=== PATIENT | female | born 1980 | race Caucasian/White ===

== ENCOUNTER 2016-09-17 10:25 | Emergency (ER) | payer OTHER ==
[~2016-09-17] VITALS: Ht 157.5 cm; Wt 52.3 kg
[~2016-09-17 10:25] MED LIST: POLY119S PO; TAB-TAB PO
[2016-09-17 10:29] VITALS: BP 118/85; PULSE 144; RESP 24; TEMP 97.5; O2SAT 100
[2016-09-17 10:41] VITALS: BP 124/88; PULSE 134; RESP 18; O2SAT 100
[2016-09-17] MEDS ORDERED: HYDR-3516 PO (10:45)
[2016-09-17] MEDS ORDERED: SODIUM CHLOR 0.9% 1000 ML INJ 1,000 ML IV ONE (10:45)
[2016-09-17] MEDS ORDERED: IBUP200C PO (10:45)
[2016-09-17] MEDS ORDERED: SODIUM CHLORIDE 0.9% FLUSH 10 ML FLUSH IVF PRN (10:45)
[2016-09-17] MEDS ORDERED: MULT-65 PO (10:45)
[2016-09-17 10:47] VITALS: BP 124/88; PULSE 121; RESP 18; O2SAT 100
--- NOTE | 2016-09-17 10:52 | PD ---
HPI Chief Complaint: Numbness/Tingling Time Seen by Provider: 10:35 Travel History International Travel<30 days: No Contact w/Intl Traveler<30days: No Traveled to known affect area: No History of Present Illness HPI The patient is a 35-year-old female who presents emergency department for multiple complaints. The patient was being evaluated at her neurologist office earlier today, Dr. Cardenas, for some left-sided numbness and tingling of the left arm and left leg which she attributed to chronic back problems. However, she was noted to have an elevated heart rate was sent to the emergency department for further evaluation. The patient has a baseline of tachycardia per her report with a normal heart rate that ranges from 90-100. The patient does drink caffeine, multiple cups of coffee per day and take Sudafed daily for her allergies. She also notes a history of hypothyroidism, however, was taken off his Synthroid secondary to low cortisol levels by her [employer] technical architect, Dr. Staton. The patient does complain of palpitations and tachycardia, denies any acute chest pain, however, had indigestion 2 days ago. She does complain of mild shortness of breath. Last menstrual cycle was September 09, she does not take control, but recently traveled to [place] via private vehicle within the last 3 months. She denies any recent hospitalizations, surgeries, or history of pulmonary embolism/DVT. PFSH Past Medical History Anxiety: Yes Cerebrovascular Accident: Yes (TIA AGE 15 FROM ) Diminished Hearing: No GERD: Yes Genitourinary: Yes (HX OF VAGINITIS) Neurologic: Yes (FIBROMYALGIA) Immunizations Current: Yes ?: Not : 2 Para: 0 Miscarriage: 1 : 1 Past Surgical History Section: Yes Gynecologic Surgery: Yes (BREAST AUGMENTATION) Neurologic Surgery: Yes (FIBROMYALGIA) Other Surgery: Yes (BREAST AUGMENTATION,iud) Social History Alcohol Use: No Tobacco Use: No Substance Use: No Allergies-Medications (Allergen,Severity, Reaction): Coded Allergies: Contrast Media (Verified Allergy, Severe, ITCHING ALL OVER AND 2 HIVES, ) PT INSTRUCTED TO ALWAYS LIST AN ALLERGY Levaquin (Verified Allergy, Mild, BODY CRAMP, 09/17/16) Naprosyn (Verified Allergy, Mild, 09/17/16) Pen-Vee K (Verified Allergy, Mild, Rash, 09/17/16) Penicillin (Verified Allergy, Unknown, 09/17/16) Reported Meds & Prescriptions Reported Meds & Active Scripts Active Reported Hydrocodone-Acetaminophen 5-325 mg Tab 1 Tab PO Q6H PRN Ibuprofen 200 Mg Cap 200 Mg PO Q4H PRN Multi-Vitamin Daily (Multiple Vitamin) 1 Tab Tab 1 Tab PO DAILY Review of Systems Except as stated in HPI: all other systems reviewed are Neg General / Constitutional: No: Fever HENT: No: Lightheadedness Cardiovascular: Positive: Palpitations, Tachycardia, No: Diaphoresis Respiratory: Positive: Shortness of Breath Gastrointestinal: No: Nausea, Vomiting, Abdominal Pain Musculoskeletal: Positive: Pain (pain occasionally behind the right knee), No : Edema Neurologic: Positive: Paresthesia, Sensory Disturbance, No: Dizziness Physical Exam Narrative GENERAL: Awake, alert, pleasant 35-year-old female who appears her stated age and is in no acute respiratory distress. SKIN: Focused skin assessment warm/dry. HEAD: Atraumatic. Normocephalic. EYES: Pupils equal and round. No scleral icterus. No injection or drainage. ENT: No nasal bleeding or discharge. Mucous membranes pink and moist. NECK: Trachea midline. No JVD. CARDIOVASCULAR: Regular, tachycardic with a heart rate in the 130s. RESPIRATORY: No accessory muscle use. Clear to auscultation. Breath sounds equal bilaterally. GASTROINTESTINAL: Abdomen soft, non-tender, nondistended. No rebound tenderness. MUSCULOSKELETAL: No obvious deformities. No clubbing. No cyanosis. No edema. NEUROLOGICAL: Awake and alert. No obvious cranial nerve deficits. Motor grossly within normal limits. Normal speech. PSYCHIATRIC: Appropriate mood and affect; insight and judgment normal. Data Data Last Documented VS Vital Signs Date Time Temp Pulse Resp B/P Pulse Ox O2 Delivery O2 Flow Rate FiO2 09/17/16 10:47 100 Room Air 09/17/16 10:47 121 18 124/88 09/17/16 10:29 97.5 Orders Electrocardiogram (09/17/16 10:39) Ckmb (Isoenzyme) Profile (09/17/16 10:43) Complete Blood Count With Diff (09/17/16 10:43) Comprehensive Metabolic Panel (09/17/16 10:43) D-Dimer (09/17/16 10:43) Magnesium (Mg) (09/17/16 10:43) Prothrombin Time / Inr (Pt) (09/17/16 10:43) Act Partial Throm Time (Ptt) (09/17/16 10:43) Troponin I (09/17/16 10:43) Chest, Single Ap (09/17/16 10:43) Ecg Monitoring (09/17/16 10:43) Bilateral Bp Monitoring (09/17/16 10:43) Iv Access Insert/Monitor (09/17/16 10:43) Oximetry (09/17/16 10:43) Oxygen Administration (09/17/16 10:43) Sodium Chloride 0.9% Flush (Ns Flush) (09/17/16 10:45) Sodium Chlor 0.9% 1000 Ml Inj (Ns 1000 M (09/17/16 10:45) Thyroid Stimulating Hormone (09/17/16 10:43) Ct Brain W/O Iv Contrast(Rout) (09/17/16 ) CKMB (09/17/16 10:50) CKMB% (09/17/16 10:50) Labs Laboratory Tests Test 09/17/16 10:50 White Blood Count 5.8 TH/MM3 Red Blood Count 5.05 MIL/MM3 Hemoglobin 14.4 GM/DL Hematocrit 43.0 % Mean Corpuscular Volume 85.2 FL Mean Corpuscular Hemoglobin 28.5 PG Mean Corpuscular Hemoglobin 33.4 % Concent Red Cell Distribution Width 13.0 % Platelet Count 316 TH/MM3 Mean Platelet Volume 7.9 FL Neutrophils (%) (Auto) 60.1 % Lymphocytes (%) (Auto) 29.9 % Monocytes (%) (Auto) 7.1 % Eosinophils (%) (Auto) 1.5 % Basophils (%) (Auto) 1.4 % Neutrophils # (Auto) 3.5 TH/MM3 Lymphocytes # (Auto) 1.7 TH/MM3 Monocytes # (Auto) 0.4 TH/MM3 Eosinophils # (Auto) 0.1 TH/MM3 Basophils # (Auto) 0.1 TH/MM3 CBC Comment DIFF FINAL Differential Comment Prothrombin Time 10.5 SEC Prothromb Time International 1.0 RATIO Ratio Activated Partial 25.5 SEC Thromboplast Time D-Dimer Quantitative (PE/DVT) 0.25 MG/L FEU Sodium Level 138 MEQ/L Potassium Level 3.9 MEQ/L Chloride Level 104 MEQ/L Carbon Dioxide Level 25.9 MEQ/L Anion Gap 8 MEQ/L Blood Urea Nitrogen 8 MG/DL Creatinine 0.77 MG/DL Estimat Glomerular Filtration 86 ML/MIN Rate Random Glucose 110 MG/DL Calcium Level 8.7 MG/DL Magnesium Level 2.0 MG/DL Total Bilirubin 0.3 MG/DL Aspartate Amino Transf 29 U/L (AST/SGOT) Alanine Aminotransferase 38 U/L (ALT/SGPT) Alkaline Phosphatase 45 U/L Total Creatine Kinase 196 U/L Creatine Kinase MB 3.6 NG/ML Creatine Kinase MB % 1.8 % Troponin I LESS THAN 0.02 NG/ML Total Protein 7.2 GM/DL Albumin 3.8 GM/DL Thyroid Stimulating Hormone 1.090 uIU/ML [address] [place] [address] Medical Decision Making Medical Screen Exam Complete: Yes Emergency Medical Condition: Yes Medical Record Reviewed: Yes Interpretation(s) EKG reveals sinus tachycardia with a rate of approximately 135. No significant ST elevations noted. Laboratory Tests Test 09/17/16 10:50 White Blood Count 5.8 TH/MM3 Red Blood Count 5.05 MIL/MM3 Hemoglobin 14.4 GM/DL Hematocrit 43.0 % Mean Corpuscular Volume 85.2 FL Mean Corpuscular Hemoglobin 28.5 PG Mean Corpuscular Hemoglobin 33.4 % Concent Red Cell Distribution Width 13.0 % Platelet Count 316 TH/MM3 Mean Platelet Volume 7.9 FL Neutrophils (%) (Auto) 60.1 % Lymphocytes (%) (Auto) 29.9 % Monocytes (%) (Auto) 7.1 % Eosinophils (%) (Auto) 1.5 % Basophils (%) (Auto) 1.4 % Neutrophils # (Auto) 3.5 TH/MM3 Lymphocytes # (Auto) 1.7 TH/MM3 Monocytes # (Auto) 0.4 TH/MM3 Eosinophils # (Auto) 0.1 TH/MM3 Basophils # (Auto) 0.1 TH/MM3 CBC Comment DIFF FINAL Differential Comment Prothrombin Time 10.5 SEC Prothromb Time International 1.0 RATIO Ratio Activated Partial 25.5 SEC Thromboplast Time D-Dimer Quantitative (PE/DVT) 0.25 MG/L FEU Sodium Level 138 MEQ/L Potassium Level 3.9 MEQ/L Chloride Level 104 MEQ/L Carbon Dioxide Level 25.9 MEQ/L Anion Gap 8 MEQ/L Blood Urea Nitrogen 8 MG/DL Creatinine 0.77 MG/DL Estimat Glomerular Filtration 86 ML/MIN Rate Random Glucose 110 MG/DL Calcium Level 8.7 MG/DL Magnesium Level 2.0 MG/DL Total Bilirubin 0.3 MG/DL Aspartate Amino Transf 29 U/L (AST/SGOT) Alanine Aminotransferase 38 U/L (ALT/SGPT) Alkaline Phosphatase 45 U/L Total Creatine Kinase 196 U/L Creatine Kinase MB 3.6 NG/ML Creatine Kinase MB % 1.8 % Troponin I LESS THAN 0.02 NG/ML Total Protein 7.2 GM/DL Albumin 3.8 GM/DL Thyroid Stimulating Hormone 1.090 uIU/ML 3rd Gen Last Impressions Chest X-Ray 09/17/16 1043 Signed Impressions: Service Date/Time: Saturday, September 17, 2016 10:43 - CONCLUSION: No acute disease. Dank Santos MD FACR Head CT 09/17/16 0000 Signed Impressions: Service Date/Time: Saturday, September 17, 2016 11:55 - CONCLUSION: No acute disease. Ajit Barnett MD Differential Diagnosis Differential diagnosis includes sinus tachycardia, A. fib, atrial flutter, sympathomimetic side effect, medication side effect, anxiety, panic attack, TIA , CVA, electrolyte abnormality, hyperthyroidism. Narrative Course IV was established, labs are drawn and sent, and the patient was placed on cardiac telemetry monitoring and continuous pulse ox imaging monitoring. EKG was ordered and interpreted. D-dimer was sent to lab. The patient was administered 1 L of IV fluids. CT the brain was ordered as patient has unusual paresthesias which she attributes to her back. Laboratory evaluation is unremarkable. D-dimer is negative, therefore, no indication for further imaging. Troponin is negative. CPK is unremarkable. Electrolytes unremarkable. Hemoglobin is unremarkable, no evidence of symptomatic anemia. Chest x-ray was normal. CT the brain was negative. The patient was reevaluated and her heart rate was down to 1/10. She does have a history of elevated heart rate and was placed on a beta joe in the past, however, did not like the way the beta joe made her feel. The patient is advised to decrease her caffeine intake and to stop Sudafed. Take Claritin as needed for allergies. 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 Patient is stable for outpatient follow-up. Diagnosis Primary Impression: Tachycardia Patient Instructions: General Instructions Additional Instructions: Please provide a patient a copy of her EKG results, CT results, x-ray results, and lab results at discharge. Decrease caffeine intake and stop Sudafed. Take [id number] Claritin as needed. Ativan as needed for anxiety/panic attack. Med/Other Pt SpecificInfo: Prescription(s) given Scripts Lorazepam (Ativan)1 Mg Tab1 Mg PO Q6H PRN (ANXIETY AND/OR AGITATION) #15 TAB Ref 0 Prov:Luca Fernandez MD 09/17/16 Disposition: 01 DISCHARGE HOME Condition: Stable Luca Fernandez MD Sep 17, 2016 10:52
[2016-09-17 11:04] LABS: AUTOMATED NEUTROPHIL # 3.5 TH/MM3 (1.8-7.7); BASOPHIL # 0.1 TH/MM3 (0-0.2); BASOPHIL % 1.4 % (0.0-2.0); EOSINOPHIL # 0.1 TH/MM3 (0-0.4); EOSINOPHIL % 1.5 % (0.0-4.0); HEMO FLAGS DIFF FINAL; LYMPH % 29.9 % (9.0-44.0); LYMPHOCYTE # 1.7 TH/MM3 (1.0-4.8); MEAN CELL VOLUME 85.2 FL (80.0-100.0); MEAN CORPUSCULAR HEMOGLOBIN 28.5 PG (27.0-34.0); MEAN CORPUSCULAR HGB CONC 33.4 % (32.0-36.0); MONO % 7.1 % (0.0-8.0); NEUT % 60.1 % (16.0-70.0); PLATELET COUNT 316 TH/MM3 (150-450); RED BLOOD COUNT 5.05 MIL/MM3 (4.00-5.30); WHITE BLOOD COUNT 5.8 TH/MM3 (4.0-11.0)
--- NOTE | 2016-09-17 11:08 | RADRPT ---
EXAM DATE/TIME: 09/17/2016 10:43 [facility] COMPARISON: CHEST SINGLE AP, September 05, 2013, 7:38. INDICATIONS : Shortness of breath. MEDICAL HISTORY : None. SURGICAL HISTORY : None. ENCOUNTER: Initial ACUITY: 2 days PAIN SCORE: 0/10 LOCATION: Bilateral chest FINDINGS: A single view of the chest demonstrates the lungs to be symmetrically aerated without evidence of mas s, infiltrate or effusion. The cardiomediastinal contours are unremarkable. Osseous structures are intact. CONCLUSION: No acute disease. Dank Santos MD FACR on September 17, 2016 at 11:05 Board Certified Radiologist. This report was verified electronically.
[2016-09-17 11:23] LABS: APTT (PATIENT) 25.5 SEC (24.3-30.1); PROTHROMBIN TIME - PATIENT 10.5 SEC (9.8-11.6)
[2016-09-17 11:31] LABS: ANION GAP 8 MEQ/L (5-15); BICARBONATE 25.9 MEQ/L (21.0-32.0); BLOOD UREA NITROGEN 8 MG/DL (7-18); CHLORIDE 104 MEQ/L (98-107); POTASSIUM 3.9 MEQ/L (3.5-5.1); SODIUM (NA) 138 MEQ/L (136-145)
[2016-09-17 11:41] LABS: ALKALINE PHOSPHATASE 45 U/L (45-117); ALT (GPT) 38 U/L (10-53); AST (GOT) 29 U/L (15-37); CREATINE KINASE 196 U/L (26-192); GLOMERULAR FILTRATION RATE 86 ML/MIN (>89); TOTAL BILIRUBIN ADULT 0.3 MG/DL (0.2-1.0)
[2016-09-17 11:54] LABS: CKMB 3.6 NG/ML (0.5-3.6)
--- NOTE | 2016-09-17 12:05 | RADRPT ---
EXAM DATE/TIME: 09/17/2016 11:55 [facility] COMPARISON: CT BRAIN W/O CONTRAST, October 21, 2013, 13:57. INDICATIONS : Left side numbness of the head. RADIATION DOSE: 34.69 CTDIvol (mGy) This report was called by Dr. Barnett to Dr. Fernandez at 12 noon on 09/17/16. MEDICAL HISTORY : None SURGICAL HISTORY : None. ENCOUNTER: Initial ACUITY: 1 day PAIN SCALE: Non-responsive LOCATION: TECHNIQUE: Multiple contiguous axial images were obtained of the head. Using automated exposure control and adj ustment of the mA and/or kV according to patient size, radiation dose was kept as low as reasonably a chievable to obtain optimal diagnostic quality images. FINDINGS: CEREBRUM: The ventricles are normal for age. No evidence of midline shift, mass lesion, hemorrhage or acute in farction. No extra-axial fluid collections are seen. POSTERIOR FOSSA: The cerebellum and brainstem are intact. The 4th ventricle is midline. The cerebellopontine angle i s unremarkable. EXTRACRANIAL: The visualized portion of the orbits is intact. SKULL: The calvaria is intact. No evidence of skull fracture. CONCLUSION: No acute disease. Ajit Barnett MD on September 17, 2016 at 12:00 Board Certified Radiologist. This report was verified electronically.
--- NOTE | 2016-09-17 12:28 | EKG ---
Date Performed: 09/17/2016 Time Performed: 10:42:01 PTAGE: 35 years EKG: SINUS TACHYCARDIA MINIMAL ST DEPRESSION ABNORMAL RHYTHM ECG COMPARED TO PRIOR ELECTROCARDIO GRAM, Rate has increased and mild ST depressions are present. PREVIOUS TRACING : 10/21/2013 12.52 DOCTOR: Tyrone Longo Interpretating Date/Time 09/17/2016 12:28:04
[2016-09-17] MEDS ORDERED: LORA-474 PO (12:53)
[2016-09-17 13:04] VITALS: BP 120/82; PULSE 110; RESP 16; O2SAT 100
== END 2016-09-17 13:05 | disposition home or self-care (01) ==
LOC: NEPC 10:25
DX: R00.0 Tachycardia, unspecified (principal); R94.31 Abnormal electrocardiogram [ECG] [EKG]; M79.7 Fibromyalgia; Z86.711 Personal history of pulmonary embolism; Z86.718 Personal history of other venous thrombosis and embolism
CPT/HCPCS: 70450; 71010; 80053; 82550; 82552; 83735; 84443; 84484; 85025; 85379; 85610; 85730; 93005; 96360; 99285; J7030